=== PATIENT | male | born 1970 | race Caucasian/White ===

== ENCOUNTER 2024-12-10 13:28 | Emergency (ER) | payer OTHER, SELFPAY ==
--- OUTSIDE RECORDS SUMMARY | 2024-12-05 00:57 | XMS_ITS | Continuity of Care Document ---
Author Organization [facility] ter Address [address] [place] [id number]- Care Team Providers Care Biosolids Management Technician Name Role Phone Babita Mathis MD Primary Care Physician [phone] Encounter [facility] Date(s): 12/04/24 - 12/05/[address] [address]- Encounter Diagnosis Opiate withdrawal(Final) - 12/04/24 Discharge Disposition: Transfer to [facility] Facility Attending Physician: Riky Denis MD Admitting Physician: Riky Denis MD Referring Physician: Not on Staff, Referring MD Encounter Type: Disch ES Allergies, Adverse Reactions, Alerts No Known Medication Allergies Immunizations Given and Recorded Vaccine Date Status Refusal Reason influenza virus vaccine, inactivated 02/26/21 Alfred rded influenza virus vaccine, inactivated 1 02/17/19 Gi mary SARS-CoV-2 (COVID-19) mRNA-1273 vaccine 08/28/20 R ecorded SARS-CoV-2 (COVID-19) mRNA-1273 vaccine 05/31/20 R ecorded 1Result Comment: [id number] Medications amLODIPine 5 mg oral tablet 5 mg, 1, tablet, By Mouth, Daily, # 30 tablet, Refills 0, Tot. Refills 0, Maintenance, 12/04/24 10:55:00 PM EDT, Route to Pharmacy Electronically, [facility]/pharmacy #[id number], Partial fill upon patient request if the prescription is for a schedule II opioid drug., 173, cm, 12/04/24 20:21:00 EDT, Height, 75,kg, 12/04/24 20:21:00 EDT, Dry Weight Start Date: 12/04/24 Status: Ordered Medication Dispense Status: Completed Quantity: 30.0 Unit: tablet Total Allowed Fills: 1 Fills Dispensed: 0 amlodipine-benazepril 10 mg-20 mg oral capsule 1 capsule, By Mouth, Daily, # 90 capsule, 3 Refills, Maintenance, 11/03/23 4:57:00 PM EDT, [facility]/pharmacy #[id number], 90, 1 capsule By Mouth Daily, 162, cm, 02/19/23 7:19:00 EST, Height, 76.4, kg, 02/18/23 16:23:00 EST, Dry Weight Start Date: 11/03/23 Status: Ordered Medication Dispense Status: Completed Quantity: 90.0 Unit: capsule Total Allowed Fills: 4 Fills Dispensed: 0 ammonium lactate 12% topical cream See Instructions, Topically 2 times a day apply and rub in well, # 385 Gm, 0 Refills, Maintenance, 05/24/20 12:10:00 PM EDT, Cream, [facility]-, Print instructions in Libyan, Topically 2 times a day; apply and rub in well, 173, cm, 05/24/20 8:36:00 EDT, Height, 98.5, kg, 05/14/20 17:02:00 EDT, Dry Weight Start Date: 05/24/20 Status: Ordered Medication Dispense Status: Completed Quantity: 385.0 Unit: g Total Allowed Fills: 1 Fills Dispensed: 0 aspirin 81 mg oral delayed release tablet 1 tablet = 81 mg, By Mouth, Daily, # 30 tablet, 0 Refills, Maintenance, 05/24/20 12:09:00 PM EDT, ECTablet, [facility], Print instructions in Libyan, 173, cm, 05/24/20 8:36:00 EDT, Height, 98.5, kg, 05/14/20 17:02:00 EDT, Dry Weight Start Date: 05/24/20 Status: Ordered Medication Dispense Status: Completed Quantity: 30.0 Unit: tablet Total Allowed Fills: 1 Fills Dispensed: 0 buprenorphine-naloxone 8 mg-2 mg sublingual film 1 film, Sublingual, 2 times a day, # 14 film, 0 Refills, Maintenance, 02/19/23 11:55:00 AM EST, Film, [facility], Partial fill upon patient request if the prescription is for a schedule II opioid drug., 1 film Sublingual 2 times a day,x7 days, 162, cm, 02/19/23 7:19:00 EST, Height, 76.4, kg, 02/18/23 16:23:00 EST, Dry Weight Start Date: 02/19/23 Stop Date: 02/26/23 Status: Ordered Medication Dispense Status: Completed Quantity: 14.0 Unit: film Total Allowed Fills: 1 Fills Dispensed: 0 Freestyle Lite Lancets See Instructions, # 100 each, Refills 6, Tot. Refills 6, Maintenance, check blood glucose once daily Dx T2DM E 11.9, 02/18/21 2:15:00 PM EST, Supply, 173, cm, 02/06/21 12:36:00 EST, Height, 98.5, kg, 05/14/20 17:02:00 EDT, Dry Weight Start Date: 02/18/21 Status: Ordered Medication Dispense Status: Completed Quantity: 100.0 Unit: each Total Allowed Fills: 7 Fills Dispensed: 0 Freestyle Lite Monitor See Instructions, # 1 each, Refills 1, Tot. Refills 1, Maintenance, check blood glucose once daily Dx T2DM E 11.9, 02/18/21 2:15:00 PM EST, Supply, 173, cm, 02/06/21 12:36:00 EST, Height, 98.5, kg, 05/14/20 17:02:00 EDT, Dry Weight Start Date: 02/18/21 Status: Ordered Medication Dispense Status: Completed Quantity: 1.0 Unit: each Total Allowed Fills: 2 Fills Dispensed: 0 FREESTYLE LITE TEST STRIP FREESTYLE LITE TEST STRIP, See Instructions, # 100 Unknown, 3 Refills, Maintenance, CHECK BLOOD GLUCOSE ONCE DAILY DX T2DM E 11.9, 05/11/22 6:46:00 PM EDT, 173, cm, 01/27/22 8:26:00 EST, Height, 98.5, kg, 05/14/20 17:02:00 EDT, Dry Weight Start Date: 05/11/22 Status: Ordered Medication Dispense Status: Completed Quantity: 100.0 Unit: Unknown Total Allowed Fills: 1 Fills Dispensed: 0 FREESTYLE LITE TEST STRIP FREESTYLE LITE TEST STRIP, See Instructions, # 100 Unknown, 3 Refills, Maintenance, CHECK BLOOD GLUCOSE ONCE DAILY DX T2DM E 11.9, 03/23/23 8:08:00 AM EST, 162, cm, 02/19/23 7:19:00 EST, Height, 76.4,kg, 02/18/23 16:23:00 EST, Dry Weight Start Date: 03/23/23 Status: Ordered Medication Dispense Status: Completed Quantity: 100.0 Unit: Unknown Total Allowed Fills: 1 Fills Dispensed: 0 Freestyle Lite Test Strips See Instructions, # 100 each, Refills 6, Tot. Refills 6, Maintenance, check blood glucose once daily Dx T2DM E 11.9, 02/18/21 2:15:00 PM EST, Supply, 173, cm, 02/06/21 12:36:00 EST, Height, 98.5, kg, 05/14/20 17:02:00 EDT, Dry Weight Start Date: 02/18/21 Status: Ordered Medication Dispense Status: Completed Quantity: 100.0 Unit: each Total Allowed Fills: 7 Fills Dispensed: 0 gabapentin 300 mg oral capsule 1, capsule, By Mouth, 3 times a day, # 90 capsule, Refills 3, Tot. Refills 3, Maintenance, 10/19/22 11:31:00 AM EDT, Route to Pharmacy Electronically, [facility]/pharmacy #[id number], 173, cm, 10/19/22 11:07:00 EDT, Height Start Date: 10/19/22 Status: Ordered Medication Dispense Status: Completed Quantity: 90.0 Unit: capsule Total Allowed Fills: 4 Fills Dispensed: 0 Indications: Neuralgia and neuritis, unspecified; metFORMIN 500 mg oral tablet 1 tablet, By Mouth, 2 times a day, # 180 tablet, 1 Refills, Maintenance, 03/22/23 6:44:00 PM EST, [id number], 162, cm, 02/19/23 7:19:00 EST, Height, 76.4, kg, 02/18/23 16:23:00 EST, Dry Weight Start Date: 03/22/23 Status: Ordered Medication Dispense Status: Completed Quantity: 180.0 Unit: tablet Total Allowed Fills: 1 Fills Dispensed: 0 metFORMIN 500 mg oral tablet 1 tablet = 500 mg, By Mouth, 2 times a day, # 60 tablet, 0 Refills, Maintenance, 12/04/24 10:55:00 PM EDT, Tablet, [facility]/pharmacy #[id number], Partial fill upon patient request if the prescription is for a schedule II opioid drug., 173, cm, 12/04/24 20:21:00 EDT, Height, 75, kg, 12/04/24 20:21:00 EDT, Dry Weight Start Date: 12/04/24 Status: Ordered Medication Dispense Status: Completed Quantity: 60.0 Unit: tablet Total Allowed Fills: 1 Fills Dispensed: 0 Methadone Tablet 30 mg, Tablet, By Mouth, Once, STAT, 12/04/24 8:59:00 PM EDT, Stop date 12/04/24 11:29:43 PM EDT Start Date: 12/04/24 Stop Date: 12/04/24 Status: Completed Medication Dispense Status: Completed Total Allowed Fills: 1 Fills Dispensed: 0 nicotine 2 mg oral transmucosal gum = 2 mg, Chew, Every 30 minutes, PRN Other, cigarette craving, # 160 each, 0 Refills, Maintenance, 05/24/20 12:11:00 PM EDT, Gum, [facility]-, Partial fill upon patient request if the prescription is for a schedule II opioid drug., 173, cm, 05/24/20 8:36:00 EDT, Height, 98.5, kg, 05/14/20 17:02:00 EDT, Dry Weight Start Date: 05/24/20 Status: Ordered Medication Dispense Status: Completed Quantity: 160.0 Unit: each Total Allowed Fills: 1 Fills Dispensed: 0 pantoprazole 20 mg oral delayed release tablet 1 tablet = 20 mg, By Mouth, Daily, # 90 tablet, 2 Refills, Maintenance, 10/19/22 12:17:00 PM EDT, CRTablet, 173, cm, 10/19/22 11:07:00 EDT, Height Start Date: 10/19/22 Status: Ordered Medication Dispense Status: Completed Quantity: 90.0 Unit: tablet Total Allowed Fills: 3 Fills Dispensed: 0 Indications: Gastro-esophageal reflux disease without esophagitis; selenium sulfide 2.25% topical shampoo See Instructions, Topically Every 72 hours, # 180 mL, 0 Refills, Maintenance, 05/24/20 12:12:00 PM EDT, [facility]-, Print instructions in Libyan, Topically Every 72 hours, 173, cm, 05/24/20 8:36:00 EDT, Height, 98.5, kg, 05/14/20 17:02:00 EDT, Dry Weight Start Date: 05/24/20 Status: Ordered Medication Dispense Status: Completed Quantity: 180.0 Unit: mL Total Allowed Fills: 1 Fills Dispensed: 0 Mental Status Mental Status Assessment Assessment Assessment Component Result Effecti ve Date Papo coma score total 15 Problem List Condition Confirmation Course Effective Dates Status H ealth Status Informant Arthritis of spine - patient reported Confirmed Active Bipolar disorder Confirmed Active Obesity (BMI 30-39.9) Confirmed Active Chronic back pain Confirmed Active Acid reflux disease Confirmed Active Hypertension Confirmed Active 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 Neuropathic pain Confirmed Active Panic disorder Confirmed Active Schizophrenia Confirmed Active Severe major depression Confirmed Active Type 2 diabetes mellitus Confirmed Active Vital Signs Most recent to oldest [Reference Range]: 1 2 3 Height 173 cm (12/04/24 8:21 PM) Weight 75 kg (12/04/24 8:21 PM) Oxygen Saturation [94-100 %] 100 % (12/05/24 1:09 AM) 100 % (12/04/24 8:28 PM) 100 % (12/04/24 8:21 PM) Pulse Rate [55-90 bpm] 79 bpm (12/05/24 1:09 AM) 115 bpm *H* (12/04/24 8:28 PM) 115 bpm *H* (12/04/24 8:21 PM) Blood Pressure [90-138/55-84 mm Hg] 155/88mm Hg *H* (12/05/24 1:09 AM) 169/97mm Hg *H* (12/04/24 8:28 PM) 169/97mm Hg *H* (12/04/24 8:21 PM) Respiratory Rate [16-30 br/min] 16 br/min (12/05/24 1:09 AM) 18 br/min (12/04/24 11:28 PM) 18 br/min (12/04/24 8:28 PM) Temperature [96.8-100.4 DegF] 98.4 DegF (12/05/24 1:09 AM) 98.3 DegF (12/04/24 8:28 PM) 98.3 DegF (12/04/24 8:21 PM) Mode of Delivery (Oxygen) Room air (12/05/24 1:09 AM) Room air (12/04/24 8:28 PM) Room air (12/04/24 8:21 PM) Blood pressure sites Arm, left (12/04/24 8:28 PM) Temperature Route Oral (12/05/24 1:09 AM) Oral (12/04/24 8:28 PM) Oral (12/04/24 8:21 PM) Dry Weight 75 kg (12/04/24 8:21 PM) Weight Obtained Via Patient/family state d (12/04/24 8:21 PM) Social History Social History Type Response Smoking Status Former smoker, quit more than 30 days ago; Use: Quit 2 years ago entered on: 02/17/19 Sex Sex Representation Male (finding) Status N/A EKG study * Event Display: EKG Authored Date: [id number] Note * Benita Mccarthy: PERFORM Event Display: Patient Education Leaflets Authored Date: [id number] [facility] ?? [id number] Trastorno por uso de opi??ceos El trastorno por uso de opi??ceos (TOO) es el uso o abuso de hero??na o analg??sicos con receta quepueden provocar adicci??n o dependencia. Algunos ejemplos de estos analg??sicos son la oxicodona, la code??na, la hidrocodona, la morfina, la metadona, y fentanilo. Otro ejemplo es la xilazina, un sedante y analg??sico aprobados ??nicamente para animales. No est??aprobado ni es seguro para las personas. Collazo nombre de corey es ???tranq?? . La xilazina se aparicio hallado en las drogas, especialmente en la hero??na y fentanilo. Se aparicio relacionado con las sobredosis y la muerte. Efectos secundarios graves de la xilazina incluyen latido card??aco lento y respiraci??n, presi??n arterial baja, llagas en la piel y coma. El abuso de estas drogas le sit??a en mayor riesgo de: ??? Adicci??n psicol??gica. [place] es antojo por el f??rmaco. No puede dejar de [place] el f??rmaco aunque crea que quiere parar. ??? Dependencia f??quang. Tiene s??ntomas de abstinencia si emmanuel de [place] el f??rmaco. ??? La p??rdida de collazo trabajo o collazo newton debido al uso de opi??ceos. ??? Problemas legales graves para posesi??n de aurea sustancia ilegal o para conducir bajo la influencia de glen sustancia. ??? Lesiones accidentales u otros mientras se encuentra bajo la influencia del f??rmaco. ??? Coma o muerte por un sobredosis. Problemas de nandini Los problemas de nandini relacionados con los opioides pueden ser distintos con distintos medicamentos. Tambi??n pueden verse afectados por otros medicamentos que est?? tomando y enfermedades cr??nicasque pueda tener. Algunos de los problemas se relacionan directamente a los f??rmacos. Otros est??n relacionados con la adicci??n o la dependencia. Estos incluyen: ??? Ansiedad, depresi??n o pensamientos o intentos de suicidio. ??? convulsiones. ??? estre??imiento; ??? Infecci??n hep??cecil (hepatitis) o insuficiencia hep??cecil. ??? Problemas de presi??n arterial. ??? Insomnio. ??? N??useas, v??mitos y est??wm problemas. ??? Somnolencia. ??? Habla arrastrada. ??? Dificultad para respirar. ??? Mareos. ??? Dolor muscular y espasmos. ??? accidente cerebrovascular; ??? Infarto de miocardio. ??? Insuficiencia renal. ??? Infecci??n por VIH. ??? Infecciones cut??neas. ??? Transmisi??n sexual infecciones. ??? Infecci??n de las v??lvulas dentro del coraz??n. ??? Coma y muerte. ?? Cuidados en el hogar He aqu?? algunas cosas que puede hacer para ayudarse si tiene un problema con el uso de opi??ceos: ??? Admitir que tiene un f??rmaco problema. Pida ayuda a collazo new[place], amigos cercanos y collazo atenci??n sanitaria proveedor. ??? Busque ayuda profesional. [place] podr??a ser psicoterapia individual, asesoramiento o un programa de tratamiento farmacol??gico. El El programa de tratamiento farmacol??gico puede ser ambulatorio o residencial. ?nase a un kenny de autoayuda para personas que consumen drogas. ??? Mant??ngase alejado de los amigos, new[place] y otras personas que abusan de las drogas. ??? Siga aurea dieta saludable. Obtener mucho ejercicio todos los d??as. ?? Atenci??n de seguimiento Seguimiento con collazo atenci??n sanitaria elisa se aconseja. P??ngase en contacto con edmund de los siguientes recursos para obtener ayuda: ??? Consejo Nacional sobre Alcoholismo y dependencia de drogas en [email or web address].[email or web address]/ ??? Abuso de sustancias y Administraci??n de Servicios de Nandini Mental en www.[facility]. v/find-treatment o 589-568-QJRN ([phone]) ?? Llamar 911 Llamar 911 si:? Tiene aurea convulsi??n. ??? Tiene dificultad para respirar o respiraci??n lentae irregular. ??? Tiene dolor tor??cico. ??? Tiene debilidad repentina en edmnud de ellos lado del cuerpo o dificultad repentina para hablar. ??? Se siente muy somnoliento o tiene problemas para despertarse. ??? Se desmaya o pierde consciencia. ??? Tiene un coraz??n r??pido tasa. ??? Tiene un coraz??n muy lento tasa. ?? Cu??ndo consultar al m??dico P??ngase en contacto con collazo profesional sanitario de inmediato si tiene: ??? S??ntomas de abstinencia. Estos incluyen agitaci??n, ansiedad, temblores, sudores, diarrea, incapacidad de dormir. ??? Fiebre de 100,4 oF (38,0 oC) o superior, o seg??n las indicaciones de collazo profesional sanitario. ??? Demasiado somnolencia o usted no se puede despertar. ??? Enrojecimiento, hinchaz??n o sensibilidad en el lugar de la inyecci??n. ?? Last Reviewed Date: 2024 00:00:00 ?? [id number] [employer]. Todos los derechos reservados. Esta informaci??n no pretende sustituir la atenci??n m??dica profesional. S??lo collazo m??dico puede diagnosticar y tratar un problema de nandini. ?? * Benita Mccarthy: PERFORM Event Display: Patient Education Leaflets Authored Date: [id number] Methadone [facility] Follow Up ?? [address] [facility] ED Methadone Protocol ?? Methadone Discharge Instructions ??? Follow Up at [facility] You were started on methadone in the Emergency Department to control withdrawal symptoms to help you to enter a methadone treatment program for opioid use disorder. Methadone works by controlling the cravings and withdrawal symptoms that you would normally have if you stopped using opioids. However, like all medications, methadone has risks. Methadone can cause sleepiness and trouble breathing, similar to an opioid overdose. This usually happens when methadone is increased too quickly, or when methadone is combined with other drugs, such as heroin, alcohol or medications that cause sleepiness. Below are instructions and next steps. ?? When you get home: The dose of methadone you received in the Emergency Department will help to control withdrawal symptoms over the next 1-2 days. It is very important that you do not use drugs or alcohol while taking methadone. Using drugs or alcohol with the methadone can cause you to become too sleepy, stop breathing or . Also, if you are intoxicated on alcohol or appear too sleepy at the methadone clinic appointment, you may not receive your next day dose. ?? If your withdrawal symptoms are too strong and you don???t think you can make it to your methadone clinic appointment, you can return to the emergency department for treatment. If you feel you are forced to use drugs prior to your methadone clinic appointment, please use less than you normally use, in order to avoid an opioid overdose. Never use alone and always carry Narcan on you while using. Consider calling Never Use Alone at [phone]. ?? Tomorrow: Arrive at the [facility] Methadone Clinic at [address],??[place], [place] at 7AM The methadone clinic will see you as a walk-in appointment. Be prepared to stay longer on the first day, as they will need to complete admission paperwork. ?? Please bring all the following to the methadone clinic: 1) Your emergency department paperwork 2) A government photo ID and 3) Your sealed last dose letter. (Do not open the letter) ? Return to the Emergency??Department if: ??? Your withdrawal is severe and you don???t think you can make it to your methadone clinic appointment ??? If you were at your methadone clinic appointment but could not be seen or given your dose ??? You feel that you are too sleepy after taking your methadone. ?? Questions If you have any questions about methadone, your clinic appointment, or believe you are still feeling cravings to use heroin or other opioids or are experiencing withdrawal symptoms, please call the emergency department at the following numbers. Between 9:00am-4:00pm call [phone] to speak to the Follow Up Nurse. From 4:00pm 9:00am call [phone] to speak to an emergency department ict sales representative ? Patient Care team information Care Team Personnel Name: Maria L Menendez RN Position: [facility] RN Member Role: Primary Care Nurse Name: Fracisco Low Position: [facility] Outreach Member Role: Lifetime Consulting Physician Name: Dary Fountain RN Position: [facility] RN Member Role: Primary Care Nurse Name: Babita Mathis MD Position: [facility] Physician - Primary Care Member Role: PCP Address: [address] [place] [address] Telecom: Name: Yunior Thompson RN Position: S RN Member Role: Primary Care Nurse Name: Dayana Hudson RN Position: S RN Member Role: Primary Care Nurse Name: Neo Kim RN Position: S RN Member Role: Primary Care Nurse Name: Rosmery Canseco RN Position: S RN Member Role: Primary Care Nurse Care Team Related Persons Name: BELIA RUSS Insurance Providers Guarantor name: [facility] Signature Plan Information #: 1 Payer: [facility] Payer Identifier: NA Member Number: [id number] Group Number: [id number] Subscriber Identifier: [id number] Relationship to Subscriber: self Coverage Type: Medicaid (Managed Care) Coverage Verification Date: NA Telecom: NA Address:
[2024-12-10] VITALS (13 sets, daily range): BP systolic 100–150; BP diastolic 51–84; PULSE 75–108; RESP 16–20; TEMP -17.7–36.5; O2SAT 95–100; BMI 22.0
[2024-12-10 14:16] LABS: Appearance Urine Clear; Glucose Urine UA Negative (Negative); PH 5.5 (5.0-9.0); Specific Gravity - Urine 1.015 (1.005-1.025); UMIC TRIGGER UACC YES
--- NOTE | 2024-12-10 14:23 | ED.AMS ---
HPI - Altered Mental Status General Chief Complaint: Altered Mental Status Stated Complaint: AMS,CONFUSED FROM [place] Time Seen by Provider: 12/10/24 14:00 Source: EMS and other (Yuriy Canales RN) Mode of arrival: EMS Limitations: altered mental status and other History of Present Illness ED Provider: HPI narrative: 53-year-old male, presenting with reports of increased confusion, patient urinating on the floors, reported that he was lethargic and has episodes of drooling, upon my initial contact with the patient, he is Mongolian speaking he is able to answer questions he is reporting mid back pain, no reports of leg pain, generally wants to leave the room to go take care of his dog and he states he lives close by and we will come back for re-evaluation. He is aware he is in the hospital, he did report that he has heard voices in was seen that people last night, that really telling him to hurt himself or hurt somebody else. He is a poor historian and I ended up calling the facility and spoke to the nurse that sent the patient out, as far as concerns for DVT this was something that the nurse stated that was noted in the beginning of patient's admission sounds like 4 weeks ago but it sounds like they are worried he may have a UTI, patient was telling the nurse that he is anxious and received 2 doses of Vistaril 50 mg twice and then 30 mg of methadone and potentially this is the sort of combination this is when this type of behavior started. The only other thing I received from a facility was his medication list, he is also on mirtazapine, Cogentin, clonidine, Depakote, Risperdal all of which are on a [facility] list for Geriatric paients due to various side effects. Related Data Allergies Allergy/AdvReac Type Severity Reaction Status Date / Time No Known Allergies Allergy Verified 12/10/24 13:57 Review of Systems Review of Systems: Yes Unobtainable due to mental status PMFSH Social History Social History Advance Directives: No Advance Directives Information Provided: Yes Do you have a plan to hurt others: No Plan Physical Exam ED Exam Exam: Patient was pacing in the room, eating applesauce Redirectable, sat down, examined the patient head-to-toe There was no facial trauma, no scleral icterus no jaundice No trauma to the body or back noted S1-S2 RRR Lungs are clear to auscultation Abdomen nondistended patient did not report pain Physical examination of the lower extremities without any edema in the lower extremities to suspect a DVT, he has been ambulatory Vital Signs: Vital Signs - 24 hr 12/10/24 13:51 12/10/24 14:45 12/10/24 15:04 Temperature 97.7 F Pulse Rate 78 99 105 H Respiratory Rate 16 16 16 Blood Pressure 117/54 L 129/77 129/84 Pulse Oximetry 100 98 95 Oxygen Delivery Method Room Air Room Air Room Air 12/10/24 15:15 12/10/24 15:27 12/10/24 15:42 Temperature Pulse Rate 98 93 87 Respiratory Rate 16 16 16 Blood Pressure 111/61 114/62 102/60 Pulse Oximetry 99 100 99 Oxygen Delivery Method Room Air Room Air Room Air 12/10/24 15:45 12/10/24 15:57 12/10/24 16:00 Temperature Pulse Rate 78 77 78 Respiratory Rate 16 16 16 Blood Pressure 101/63 100/51 L 113/65 Pulse Oximetry 100 99 98 Oxygen Delivery Method Room Air Room Air Room Air 12/10/24 16:12 Temperature Pulse Rate 75 Respiratory Rate 16 Blood Pressure 104/63 Pulse Oximetry 100 Oxygen Delivery Method Room Air BMI result Body Mass Index 22.0 Medications Administered Discontinued Medications Generic Name Dose Route Start Last Admin Trade Name Freq PRN Reason Stop Dose Admin Diazepam 5 mg 12/10/24 15:05 12/10/24 15:12 Diazepam 10 Mg/2 Ml Cartridge IM 12/10/24 15:06 5 mg STAT STA Administration Haloperidol Lactate 2.5 mg 12/10/24 15:05 12/10/24 15:12 Haloperidol Lactate 5 Mg/Ml Vial IM 12/10/24 15:06 2.5 mg ONCE ONE Administration Olanzapine 10 mg 12/10/24 14:10 12/10/24 14:45 Olanzapine 10 Mg Vial IM 12/10/24 14:11 10 mg ONCE ONE Administration Medical Decision Making Medical Decision Making MDM Narrative: 2:31 PM 12/10/2024 (Dr. Ector Loco): Additional information obtained by calling the facility to make sure understand the facilities concerns, it sounds like DVTs not the primary issue as reportedly and P noted leg swelling or patient was complaining of pain upon initial admission that is what the nurse told me, there was no evidence the patient has DVT and does no indication that she needs an ultrasound, unfortunately patient does have psychiatric issues and he does not need to be evaluated, we will not be able to obtain blood work without having to sedate him and she basically was just trying to leave his room and pace around the department he has not been agitated or aggressive towards myself or staff, he is moving upper and lower extremities symmetrically, he has no facial droop, he is otherwise redirectable answers questions did not feel further need for CT of the brain to evaluate for stroke and there was no trauma to suspect underlying subarachnoid hemorrhage As I spoke to the nursing sounds like some of the symptoms that started that were concerning to them started with Vistaril and methadone, patient is 53 it is not classically a geriatric over 65 however these medications that combination can lead to confusion. This is something I will let the facility be aware of, disposition to be determined Differential Diagnosis Differential Diagnoses: The differential diagnosis associated with the presentation includes (UTI, over medication, drug use, DVT, electrolyte derangements, psychosis) Admission/Observation Consideration of admission/observation: Escalation of care including admission/observation considered Lab Data [facility] Lab Attestation statement: I reviewed the patient's lab results. 12/10/24 16:12 12/10/24 16:12 Labs: Lab Results 12/10/24 12/10/24 Range/Units 14:06 16:12 WBC 5.4 (4.8-10.8) X10*3/uL RBC 3.52 L (4.60-5.80) X10*6/uL Hgb 10.8 L (14.0-18.0) g/dl Hct 32.0 L (42.0-52.0) % MCV 90.9 (80.0-98.0) fL MCH 30.7 (27.0-33.0) pg MCHC 33.8 (31.0-36.0) g/dl RDW 13.5 (11.0-16.0) % Plt Count 158 L (160-400) X10*3/uL MPV 10.0 (9.4-12.4) fL Immature Gran % (Auto) 0.7 H (0.0-0.4) % Neut % (Auto) 54.2 (45-73) % Lymph % (Auto) 26.9 (20-40) % [place] % (Auto) 15.5 H (2-11) % Eos % (Auto) 2.1 (0-4) % Baso % (Auto) 0.6 (0-2) % Lymph # (Auto) 1.4 (1.2-4.9) X10*3/uL [place] # (Auto) 0.8 (0.1-1.2) X10*3/uL Eos # (Auto) 0.1 (0.0-0.4) X10*3/uL Baso # (Auto) 0.0 (0.0-0.2) X10*3/uL Abs Immat Gran (auto) 0.04 H (0.00-0.03) X10*3/uL Absolute Neuts (auto) 2.9 (2.0-8.3) x10*3/uL Absolute Nucleated RBC 0.000 (0.0-0.012) X10*3/uL Nucleated RBC % (auto) 0.0 (0.0-0.2) /100WBC Sodium 139 (135-145) mmol/L Potassium 5.1 (3.3-5.1) mmol/L Chloride 106 (96-108) mmol/L Carbon Dioxide 25 (22-29) mmol/L Anion Gap 13 (12-20) BUN 33 H (9-16) mg/dL Creatinine 1.00 (0.5-1.4) mg/dL Estim Creat Clear Calc 77.6 Estimated GFR > 60 Random Glucose 80 (60-115) mg/dL Calcium 9.1 (8.4-10.2) mg/dL Total Bilirubin 0.4 (0.0-1.0) mg/dL AST 21 (5-37) U/L ALT 21 (0-40) U/L Alkaline Phosphatase 51 (39-117) U/L Total Protein 7.0 (6.5-8.0) g/dL Albumin 4.3 (3.5-5.0) g/dL Urine Color Yellow Urine Appearance Clear Urine pH 5.5 (5.0-9.0) Ur Specific [place] 1.015 (1.005-1.025) Urine Protein Negative (Neg-Trace) mg/dL Urine Glucose (UA) Negative (Negative) mg/dL Urine Ketones Negative (Negative) mg/dL Urine Blood Trace H (Negative) Urine Nitrite Negative (Negative) Ur Leukocyte Esterase Negative (Negative) Urine RBC 0-2 (0-2) /HPF Urine WBC 0-5 (0-5) /HPF Ur Squamous Epith Cells 0-2 (0-2) /HPF Urine Bacteria None Seen (None Seen) Hyaline Casts 0-2 (0-2) /LPF Urine Opiates Screen Not Detected (Not Detect) Ur Buprenorphine Scrn Not Detected (Not Detect) ng/mL Ur Oxycodone Screen Not Detected (Not Detect) ng/mL Urine Methadone Screen Positive H (Not Detect) ng/mL Urine Fentanyl Screen POSITIVE H (Not Detect) Ur Barbiturates Screen Not Detected (Not Detect) Ur Phencyclidine Scrn Not Detected (Not Detect) Ur Amphetamines Screen Not Detected (Not Detect) U Benzodiazepines Scrn Not Detected (Not Detect) Urine Cocaine Screen Not Detected (Not Detect) U Marijuana (THC) Screen Not Detected (Not Detect) Independent Historian Clinical information obtained from an independent historian. History obtained from or confirmed by: EMS and Other (Nurse who sent the patient to the ER from [place]) External Record Review External record reviewed: Outpatient record Tests considered The following testing was considered but not selected: CT brain Chronic Conditions Patient?s care impacted by: Other (Mental health illness) Discharge Plan Discharge Clinical Impression: Altered mental status Patient Disposition: er Psychiatric Hosp Transfer Details: [place] Additional Instructions: Patient evaluated for concern of change in mental status, his urine does not show any infection, he tested positive for methadone but also for fentanyl, in conjunction with hydroxyzine and methadone and along his other medications I would say that it can definitely contribute to mentation changes but there was no evidence that he requires antibiotics There was no any evidence that he has swelling of his legs necessitating an ultrasound, this was not performed in the emergency department based on physician's discretion. I recommend reviewing his medications, I discussed his presentation with the nurse who administered Vistaril for anxiety, and patient also received methadone and Vistaril can cause confusion in addition with the other medications ( along with potential drug use ) and so generally I will leave it up to the psychiatric team to determine what medications unnecessary in his care, in order to obtain blood work and manage patient in the emergency department he did have to have sedation with Zyprexa, Valium and Haldol. This was not due destructive behavior but by the fact that he was walking out of his room and going into other patient's rooms. Blood work reassuring, without any evidence for dehydration or infectious etiology, his vital signs have been stable Print Language: Mongolian
[2024-12-10 14:27] LABS: Cannabinoid Screen Urine Not Detected (Not Detect)
[2024-12-10] MEDS: OLANZapine 10 MG VIAL IM (14:45)
--- NOTE | 2024-12-10 14:45 | PC.NURSE ---
pt ia altered keeps pacing and not re-directable at this time, throwing punches and verbal aggression in [place]
[2024-12-10] MEDS: diazePAM 10 MG/2 ML CARTRIDGE 5 MG IM (15:12)
--- NOTE | 2024-12-10 15:12 | PC.NURSE ---
pt attempting continuos on being non-redirectable and attempting to hit staff
--- NOTE | 2024-12-10 15:20 | PC.NURSE ---
Pt found to be up oob, ambulatory around unit with steady gait and 1:1 sitter. Pt attempting to enter other patients rooms- unable to redirect pt. Pt began yelling/swinging at staff. Security and MD called to bedside. Pt medicated per MAR with IM injections, unable to obtain vitals d/t pt agitation/combative- refer to medication restraint paperwork for documentation. Report given to primary RN on situation.
--- NOTE | 2024-12-10 16:00 | PC.NURSE ---
pt is currently sleeping respirations evne and unlabored, sitter at bedside
[2024-12-10 16:15] LABS: MANUAL DIFF FLAG NO
[2024-12-10 16:16] LABS: Hematocrit 32.0 % (42.0-52.0); Hemoglobin 10.8 g/dl (14.0-18.0); Imm Gran Abs Auto 0.04 X10*3/uL (0.00-0.03); Imm Gran Pct Auto 0.7 % (0.0-0.4); Lymphocytes Absolute Auto 1.4 X10*3/uL (1.2-4.9); Mean Corpuscular HGB Conc 33.8 g/dl (31.0-36.0); Mean Corpuscular Hemoglobin 30.7 pg (27.0-33.0); Mean Corpuscular Volume 90.9 fL (80.0-98.0); NRBC Abs Auto 0.000 X10*3/uL (0.0-0.012); NRBC Pct Auto 0.0 /100WBC (0.0-0.2); Platelet Count 158 X10*3/uL (160-400); Red Blood Count 3.52 X10*6/uL (4.60-5.80); White Blood Count 5.4 X10*3/uL (4.8-10.8)
[2024-12-10 16:29] LABS: Alanine Aminotransferase 21 U/L (0-40); Albumin Level 4.3 g/dL (3.5-5.0); Alkaline Phosphatase 51 U/L (39-117); Anion Gap 13 (12-20); Aspartate Amino Transferase 21 U/L (5-37); Blood Urea Nitrogen 33 mg/dL (9-16); Calcium 9.1 mg/dL (8.4-10.2); Carbon Dioxide 25 mmol/L (22-29); Chloride 106 mmol/L (96-108); Creatinine Clr Calc Pharmacy 77.6; Estimated Glomerular Filt Rate > 60; Potassium 5.1 mmol/L (3.3-5.1); Sodium 139 mmol/L (135-145); Total Protein 7.0 g/dL (6.5-8.0)
--- NOTE | 2024-12-10 17:38 | PC.NURSE ---
called [facility] and gave reprort to Analy LUJAN and plan for the patient to go back around 2030
== END 2024-12-10 18:51 ==
PROVIDERS: Emergency Provider Emergency Medicine
DX: R41.82 Altered mental status, unspecified (principal); F11.90 Opioid use, unspecified, uncomplicated; Z51.81 Encounter for therapeutic drug level monitoring; Z79.899 Other long term (current) drug therapy
CPT/HCPCS: 36415; 80053; 80307; 81001; 85025; 96372; 99285; J1630; J2359; J3360